=== PATIENT | male | born 1965 | race Caucasian/White ===

== ENCOUNTER 2016-10-04 14:00 | Outpatient (RCR) | payer OTHER | END 2016-10-09 | disposition home or self-care (01) | LOC: MKS.ESL.PT | DX: M75.42 Impingement syndrome of left shoulder (principal) | CPT/HCPCS: G8978-GP; G8979-GP ==

== ENCOUNTER 2016-10-18 12:30 | Outpatient (RCR) | payer OTHER | END 2017-01-08 | disposition home or self-care (01) | LOC: MKS.ESL.PT | DX: M75.42 Impingement syndrome of left shoulder (principal) ==

== ENCOUNTER 2020-03-01 10:40 | Emergency (ER) | payer OTHER ==
[~2020-03-01] VITALS: Ht 177.8 cm; Wt 118.2 kg
[2020-03-01 10:45] VITALS: TEMP 97.7
[2020-03-01] MEDS ORDERED: FLEXERIL 1010 MG/TAB PO (11:06)
[2020-03-01 11:20] VITALS: BP 128/99; PULSE 85
== END 2020-03-01 11:21 | disposition home or self-care (01) ==
LOC: COL.ER 10:40
DX: M54.6 Pain in thoracic spine (principal)

== ENCOUNTER 2022-08-23 08:45 | Day surgery (SDC) | payer OTHER ==
[~2022-08-23] VITALS: Ht 177.8 cm; Wt 101.6 kg
[~2022-08-23 08:45] MED LIST: ASPIRIN E.C. 8181 MG PO; DIABETA 5MG5 MG/TAB PO; FLEXERIL 1010 MG/TAB PO; GLUCOPHAGE850 MG/TAB PO; JARDIANCE25 PO; OZEMPIC1 MG/0.71 SQ; PRINIVIL40 MG PO
[2022-08-23 11:08] VITALS: BP 129/79; PULSE 84; TEMP 97.8
--- NOTE | 2022-08-23 11:08 | NUR ---
1108 PATIENT RETURNS TO ROOM 6 VIA CART. PATIENT IS ALERT AND ORIENTED. PATIENT AMBULATES TO RECLINER WITH THE ASSISTANCE OF 2 NURSES. RESPIRATIONS EVEN AND UNLABORED. VITAL SIGNS OBTAINED. PATIENT REQUESTED A SPRITE AND MUFFIN, NO DIFFICULTIES SWALLOWING. 1125 DISCHARGE INSTRUCTIONS REVIEWED WITH PATIENT. PATIENT VERBALIZED UNDERSTANDING. 1130 DISCONTINUED IV FROM RIGHT HAND WITH NO COMPLICATIONS. 1140 DOCTOR IN TO SPEAK WITH PATIENT. 1200 PATIENT DISCHARGES FROM UNIT VIA WHEELCHAIR IN STABLE CONDITION. PATIENT FRIEND PICKED PATIENT UP FROM HOSPITAL.
[2022-08-23 11:25] VITALS: BP 127/82; PULSE 81; TEMP 97.8
[2022-08-23 11:40] VITALS: BP 127/82; PULSE 81
[2022-08-23 11:42] VITALS: BP 131/81; PULSE 84; TEMP 97.8
[2022-08-23 13:11] VITALS: BP 122/68; PULSE 82
== END 2022-08-23 12:00 | disposition home or self-care (01) ==
LOC: SDCO 08:45
DX: Z12.11 Encounter for screening for malignant neoplasm of colon (principal); G47.33 Obstructive sleep apnea (adult) (pediatric); E11.9 Type 2 diabetes mellitus without complications; Z99.81 Dependence on supplemental oxygen; Z87.891 Personal history of nicotine dependence; Z79.84 Long term (current) use of oral hypoglycemic drugs
CPT/HCPCS: J2704